=== PATIENT | female | born 1955 | race Caucasian/White ===

== ENCOUNTER → 2016-09-28 | Outpatient (CLI) | payer BC ==
[~2016-09-28] MED LIST: AMBIEN5 MG PO; EFFEXOR
== END ==
LOC: MC.RAD 09:40
DX: Z12.31 Encounter for screening mammogram for malignant neoplasm of breast (principal)

== ENCOUNTER → 2017-10-18 | Outpatient (CLI) | payer BC | LOC: MC.RAD 08:25 | DX: Z12.31 Encounter for screening mammogram for malignant neoplasm of breast (principal) ==

== ENCOUNTER 2018-08-13 20:14 | Emergency (ER) | payer BC ==
[~2018-08-13] VITALS: Ht 162.6 cm; Wt 106.8 kg
[2018-08-13 20:22] VITALS: TEMP 98
[2018-08-13] MEDS ORDERED: NORCO 325 MG-51 TAB PO (21:14)
[2018-08-13] MEDS ORDERED: MEDROL 4MG DOSPA4 MG PO (21:14)
[2018-08-13 21:21] VITALS: BP 149/81; PULSE 75
== END 2018-08-13 21:32 | disposition home or self-care (01) ==
LOC: COL.ER 20:14
DX: M54.16 Radiculopathy, lumbar region (principal); F32.9 Major depressive disorder, single episode, unspecified
CPT/HCPCS: J1170; J7512

== ENCOUNTER → 2018-11-14 | Outpatient (CLI) | payer BC ==
[~2018-11-14] MED LIST changes: +MEDROL 4MG DOSPA4 MG PO; +NORCO 325 MG-51 TAB PO
== END ==
LOC: MC.RAD 10:57
DX: Z12.31 Encounter for screening mammogram for malignant neoplasm of breast (principal)

== ENCOUNTER → 2019-11-16 | Outpatient (CLI) | payer BC | LOC: MC.RAD 09:26 | DX: Z12.31 Encounter for screening mammogram for malignant neoplasm of breast (principal) ==

== ENCOUNTER → 2020-12-05 | Outpatient (CLI) | payer BC | LOC: MC.RAD 08:45 | DX: Z12.31 Encounter for screening mammogram for malignant neoplasm of breast (principal) ==

== ENCOUNTER → 2021-12-31 | Outpatient (CLI) | payer BC ==
--- NOTE | 2021-12-26 10:36 | NUR ---
LMOM WITH INSTRUCTIONS AND CALL BACK NUMBER
[~2021-12-31] VITALS: Ht 162.6 cm; Wt 104.5 kg
[~2021-12-31] MED LIST changes: +AMBIEN 10MG10 MG PO; -AMBIEN5 MG PO; +COZAAR 25MG25 MG/TAB PO; -EFFEXOR; +EFFEXOR XR75 MG/CAP PO; +GLUCOPHAGE XR500 M1 PO; +LIPITOR 10MG10 MG PO; +NEURONTIN100 MG/CAP PO
[2021-12-31 07:02] VITALS: BP 137/79; PULSE 95; TEMP 98.5
[2021-12-31 08:20] VITALS: BP 130/78; PULSE 85
== END ==
LOC: COL.RAD 06:45
DX: E04.1 Nontoxic single thyroid nodule (principal)
CPT/HCPCS: 32106